=== PATIENT | male | born 1965 | race African-American/Black ===

== ENCOUNTER 2020-03-15 13:12 | Emergency (ER) | payer OTHER, SELFPAY ==
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
[2020-03-15 13:16] VITALS: BP 144/67; PULSE 82; RESP 20; TEMP 36.5; O2SAT 98
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
[2020-03-15 14:12] VITALS: PULSE 80; RESP 12; O2SAT 99
== END 2020-03-15 14:13 | disposition home or self-care (01) ==
LOC: ANHED 14:06
PROVIDERS: Emergency Provider Emergency Medicine
DX: S16.1XXA Strain of muscle, fascia and tendon at neck level, initial encounter (principal); V49.40XA Driver injured in collision with unspecified motor vehicles in traffic accident, initial encounter
CPT/HCPCS: 72125; 99284

== ENCOUNTER 2022-03-08 12:21 | Outpatient (CLI) | payer OTHER, SELFPAY ==
[2022-03-08 12:43] LABS: Hematocrit 48.5 % (42.0-52.0); Hemoglobin 15.4 g/dL (14.0-18.0); Mean Corpuscular HGB Conc 31.8 g/dl (32-36); Mean Corpuscular Hemoglobin 30.3 pg (26-34); Mean Corpuscular Volume 95.5 fl (80-100); Mean Platelet Volume 9.7 fl (7.4-10.4); Platelet Count Result 163 k/mm3 (150-375); Red Blood Count 5.08 M/mm3 (4.6-6.20); Red Cell Distribution Width 13.7 % (11.5-14.5); White Blood Count 5.6 K/mm3 (4.5-10.0)
[2022-03-08 12:55] LABS: Alanine Aminotransferase 41 U/L (6-50); Albumin Level 4.1 g/dL (3.5-5.1); Alkaline Phosphatase 50 U/L (38-126); Anion Gap 7 mmol/L (8-16); Aspartate Amino Transferase 33 U/L (17-59); Bilirubin,Total 0.4 mg/dL (0.2-1.3); Blood Urea Nitrogen 15 mg/dL (9-20); Calcium 9.2 mg/dL (8.4-10.2); Carbon Dioxide 27 mmol/L (22-30); Chloride 105 mmol/L (98-107); Cholesterol 156 mg/dL (0-200); Estimated Glomerular Filt Rate > 60; Glucose 96 mg/dL (65-110); HDL Direct 58 mg/dL; Potassium 4.2 mmol/L (3.4-5.0); Sodium 139 mmol/L (137-145); Triglycerides 63 mg/dL (<150)
[2022-03-08 13:04] LABS: Hemoglobin A1C 5.6 % (<5.7)
[2022-03-08 13:06] LABS: LDL Cholesterol Direct 75 mg/dL
[2022-03-08 13:25] LABS: Prostate Specific Antigen 0.8 ng/mL (< OR = 4.0)
[2022-03-11 19:19] LABS: Vitamin D 1,25 (OH)2 Total 47 pg/mL (18-72); Vitamin D2 1,25 (OH)2 <8 pg/mL; Vitamin D3 1,25 (OH)2 47 pg/mL
== END 2022-03-08 12:22 | disposition home or self-care (01) ==
LOC: ANHLAB 12:23
PROVIDERS: Visit Provider Family Medicine
DX: Z00.00 Encounter for general adult medical examination without abnormal findings (principal)
CPT/HCPCS: 36415; 80053; 80061; 82652; 83036; 84153; 85027

== ENCOUNTER 2022-12-21 23:15 | Emergency (ER) | payer OTHER, SELFPAY ==
[2022-12-21 23:17] VITALS: BP 156/93; PULSE 90; RESP 15; TEMP 36.9; O2SAT 96
--- NOTE | 2022-12-22 01:05 | ED.GENADULT ---
HPI - General Adult General Chief complaint: Eye Problems Stated complaint: headache/flu like symptoms Time Seen by Provider: 12/22/22 00:13 Source: patient Mode of arrival: ambulatory Limitations: no limitations History of Present Illness HPI narrative: This is a 57 year old male that presents to the ER for eye irritation since this afternoon. 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 Reports he did have on goggles and a shield. Reports since he has had redness, tearing and irritation of both of his eyes. Also reports nasal congestion. Denies fever, vision changes, or cough. Related Data Allergies Allergy/AdvReac Type Severity Reaction Status Date / Time No Known Allergies Allergy Verified 12/21/22 23:21 Review of Systems Review of Systems: CONSTITUTIONAL: Denies fever EYES: Reports redness and discharge. Denies visual changes ENT: Reports rhinorrhea, congestion RESPIRATORY: Denies cough All systems reviewed & are unremarkable except as noted in HPI and below PMFSH Past Medical History Medical History (Updated 12/22/22 @ 01:36 by Mayela Hess PA-C) No active medical problems Social History Social History (Updated 12/22/22 @ 01:08 by Mayela Hess PA-C) Substance use: never Exam Narrative: GENERAL: Well-appearing, well-nourished, and in no acute distress. HEAD: Normocephalic, atraumatic. EYES: PERRLA and EOMI. Eyelid everted, no foreign body noted. Mild conjunctival injection and tearing bilaterally. No fluorescein stain uptake. Visual acuity 20/25 in each eye ENT: Nares with rhinorrhea. Mucous membranes moist. Oropharynx without tonsillar hypertrophy exudate or other lesions. Bilateral TMs pearly gamble non-bulging NECK: Supple. No adenopathy or masses. CHEST: Clear to auscultation. No respiratory distress. No wheezes rales or rhonchi HEART: Regular rate and rhythm. No murmur heard. Normal peripheral pulses. EXTREMITIES: Normal range of motion. No edema. SKIN: Warm, dry, no rash. NEURO: No focal deficits. Alert and oriented x3. PSYCH: Normal mood and affect Course Course Emergency Course: Patient and family agree with plan of care Vital Signs Vital signs: Vital Signs Temperature 98.4 F 12/21/22 23:17 Pulse Rate 90 12/21/22 23:17 Respiratory Rate 15 12/21/22 23:17 Blood Pressure 156/93 H 12/21/22 23:17 Pulse Oximetry 96 12/21/22 23:17 Oxygen Delivery Room Air 12/21/22 23:17 Temperature 98.4 F 12/21/22 23:17 Pulse Rate 90 12/21/22 23:17 Respiratory Rate 15 12/21/22 23:17 Blood Pressure 156/93 H 12/21/22 23:17 Pulse Oximetry 96 12/21/22 23:17 Oxygen Delivery Room Air 12/21/22 23:17 Medical Decision Making MDM Narrative Medical decision making narrative: Patient presents tumors department for eye irritation. Reports he was grinding metal earlier today. He does report he was wearing goggles and a shield. He says he noted some eye irritation and redness as well as tearing. He has mild conjunctival injection bilaterally on exam. There are no foreign bodies noted. No fluorescein stain uptake on exam. His visual acuity is normal. His eyes were irrigated in the ED. He was instructed to follow-up with ophthalmology. He was given warnings to return to the ER Vital Signs Vital Signs: Vital Signs Temperature 98.4 F 12/21/22 23:17 Pulse Rate 90 12/21/22 23:17 Respiratory Rate 15 12/21/22 23:17 Blood Pressure 156/93 H 12/21/22 23:17 Pulse Oximetry 96 12/21/22 23:17 Oxygen Delivery Room Air 12/21/22 23:17 Temperature 98.4 F 12/21/22 23:17 Pulse Rate 90 12/21/22 23:17 Respiratory Rate 15 12/21/22 23:17 Blood Pressure 156/93 H 12/21/22 23:17 Pulse Oximetry 96 12/21/22 23:17 Oxygen Delivery Room Air 12/21/22 23:17 Critical Care Time Critical Care Time Critical Care Time: No Discharge Plan Discharge Clinical Impression: Conjunctivitis Qualifiers: Conjunctivitis type: unspecified Lateralit
[2022-12-22 01:45] VITALS: BP 154/74; PULSE 74; RESP 18; TEMP 36.9; O2SAT 100
== END 2022-12-22 02:14 | disposition home or self-care (01) ==
LOC: ANHED 12-22 01:51
PROVIDERS: Emergency Provider Physician Assistant
DX: H10.9 Unspecified conjunctivitis (principal)
CPT/HCPCS: 99283; A9270

== ENCOUNTER 2023-06-22 10:16 | Outpatient (CLI) | payer BC, SELFPAY ==
[2023-06-22 11:05] LABS: Basophils Percent Auto 0.4 % (0.2-1.2); Eosinophils Absolute Auto 0.2 K/mm3 (0-0.3); Eosinophils Percent Auto 3.1 % (0-4.4); Hematocrit 50.4 % (42.0-52.0); Hemoglobin 15.7 g/dL (14.0-18.0); Immature Granulocyte Absolute 0.03 K/mm3 (0.00-0.031); Immature Granulocyte Percent A 0.4 % (0-0.5); Lymphocytes Absolute Auto 2.22 K/mm3 (0.9-3.2); Lymphocytes Percent Auto 32.6 % (18.3-44.2); Mean Corpuscular HGB Conc 31.2 g/dl (32-36); Mean Corpuscular Hemoglobin 29.7 pg (26-34); Mean Corpuscular Volume 95.5 fl (80-100); Mean Platelet Volume 10.1 fl (7.4-10.4); Monocytes Absolute Auto 0.8 K/mm3 (0.1-0.6); Monocytes Percent Auto 11.3 % (2.6-8.5); Neutrophils Absolute Auto 3.6 K/mm3 (1.3-6.7); Neutrophils Percent Auto 52.2 % (45.5-73.1); Platelet Count Result 210 k/mm3 (150-375); Red Blood Count 5.28 M/mm3 (4.6-6.20); Red Cell Distribution Width 13.2 % (11.5-14.5); White Blood Count 6.8 K/mm3 (4.5-10.0)
[2023-06-22 11:17] LABS: Alanine Aminotransferase 35 U/L (6-50); Albumin Level 4.1 g/dL (3.5-5.1); Alkaline Phosphatase 60 U/L (38-126); Anion Gap 8 mmol/L (8-16); Aspartate Amino Transferase 32 U/L (17-59); Blood Urea Nitrogen 14 mg/dL (9-20); Calcium 9.4 mg/dL (8.4-10.2); Carbon Dioxide 26 mmol/L (22-30); Chloride 104 mmol/L (98-107); Cholesterol 184 mg/dL (0-200); Estimated Glomerular Filt Rate > 60; Glucose 95 mg/dL (65-110); HDL Direct 53 mg/dL; Potassium 4.3 mmol/L (3.4-5.0); Sodium 138 mmol/L (137-145); Triglycerides 100 mg/dL (<150)
[2023-06-22 11:28] LABS: LDL Cholesterol Direct 103 mg/dL
[2023-06-22 11:58] LABS: Thyroid Stimulating Hormone Reflex 0.675 uIU/mL (0.465-4.68)
[2023-06-26 11:32] LABS: Vitamin D 1,25 (OH)2 Total 33 pg/mL (18-72); Vitamin D2 1,25 (OH)2 <8 pg/mL; Vitamin D3 1,25 (OH)2 33 pg/mL
== END 2023-06-22 10:17 | disposition home or self-care (01) ==
LOC: ANHLAB 10:18
PROVIDERS: Visit Provider Family Medicine
DX: E66.9 Obesity, unspecified (principal)
CPT/HCPCS: 36415; 80053; 80061; 82652; 84443; 85025